=== PATIENT | male | born 1970 ===

== ENCOUNTER 2021-03-10 17:36 | Emergency (ER) | payer MEDICARE ==
[2021-03-10 19:36] LABS: Basophils # (Auto) 0.2 K/mm3 (0.0-0.1); Basophils % (Auto) 1.5 % (0.0-1.8); Eosinophils # (Auto) 0.1 K/mm3 (0.0-0.4); Eosinophils % (Auto) 0.7 % (0.0-4.3); Hematocrit 44.2 % (35.5-45.6); Hemoglobin 15.5 gm/dl (11.8-15.2); Lymphocytes # (Auto) 1.9 K/mm3 (1.2-5.4); Lymphocytes % (Auto) 18.5 % (13.4-35.0); Mean Corpuscular HGB Conc 35 % (32-34); Mean Corpuscular Volume 86 fl (84-94); Monocytes # (Auto) 0.6 K/mm3 (0.0-0.8); Monocytes % (Auto) 5.8 % (0.0-7.3); Platelet Count 279 K/mm3 (140-440); Red Blood Count 5.12 M/mm3 (3.65-5.03); Red Cell Distribution Width 12.9 % (13.2-15.2)
[2021-03-10 19:51] LABS: Blood Urea Nitrogen 10 mg/dL (9-20); Calcium 9.8 mg/dL (8.4-10.2); Hemolysis Index 11
[2021-03-10 19:54] LABS: BUN/Creatinine Ratio 14
[2021-03-10 21:15] LABS: Amphetamine Screen,Urine Negative; Benzodiazepines Screen,Urine Negative; Cannabinoid Screen,Urine Negative; Cocaine Screen,Urine Negative; Methadone Screen,Urine Negative; Opiate Screen,Urine Negative
[2021-03-10 21:18] LABS: Bilirubin,Urine NEG (Negative); Blood,Urine NEG (Negative); Color,Urine Yellow (Yellow); Protein,Urine <15 mg/dL mg/dL (Negative); Urobilinogen,Urine < 2.0 mg/dL (<2.0)
[2021-03-10] MEDS ORDERED: clonazePAM 0.5 MG TAB PO ONE (21:31)
--- NOTE | 2021-03-10 21:37 | Emergency Department Report ---
HPI - General Chief Complaint: Anxiety Time Seen by Provider: 03/10/21 20:58 - HPI HPI: This is a 50-year-old male who presents to the emergency department with complaint of anxiety, depression and suicidal ideations. The patient was at the partial hospitalization program [facility]. However, he says that most of the people there were being treated for substance abuse and he did not feel that he was getting appropriate psychiatric treatment. Therefore, after 3.5 days of treatment there he left [facility]. He asked about going to the main [facility] for psychiatric care but was told that he needed to come to the emergency department for evaluation. Patient says that he has been on many different antidepressant medications but nothing appears to be working. This is causing him to feel despair and it has gotten to the point where he feels like he would be better off . He has thought about hanging himself. He denies any hallucinations or homicidal ideations. The patient also has a medical history of [id number] diabetes and hypertension. He denies any tobacco or illicit drug use. ED Past Medical Hx - Past Medical History Previous Medical History?: Yes Hx Hypertension: Yes Hx Diabetes: Yes Hx Psychiatric Treatment: Yes Additional medical history: Anxiety and depression - Surgical History Past Surgical History?: Yes Additional Surgical History: Back - Social History Smoking Status: Never Smoker Substance Use Type: None - Medications Home Medications: Home Medications Medication Instructions Recorded Confirmed Last Taken Type Azilsartan Medoxomil [Edarbi] 80 mg PO DAILY 03/10/21 03/10/21 Unknown History PARoxetine HCl [Paxil] 40 mg PO QDAY 03/10/21 03/10/21 Unknown History Rosuvastatin (Nf) [Crestor] 5 mg PO QDAY 03/10/21 03/10/21 Unknown History amLODIPine [Norvasc] 10 mg PO DAILY 03/10/21 03/10/21 Unknown History busPIRone [Buspar] 10 mg PO TID 03/10/21 03/10/21 Unknown History clonazePAM [Klonopin] 1 mg PO BID PRN 03/10/21 03/10/21 Unknown History metFORMIN [Glucophage] 500 mg PO BID 03/10/21 03/10/21 Unknown History ED Review of Systems ROS: Stated complaint: ANXIETY AND DEPRESSION Other details as noted in HPI Comment: All other systems reviewed and negative Constitutional: denies: chills, fever Eyes: denies: eye pain, vision change ENT: denies: ear pain, throat pain Respiratory: denies: cough, shortness of breath Cardiovascular: denies: chest pain, palpitations Gastrointestinal: denies: abdominal pain, vomiting Musculoskeletal: denies: back pain, arthralgia Neurological: denies: headache, weakness Psychiatric: anxiety, depression, suicidal thoughts. denies: auditory hallucinations, visual hallucinations, homicidal thoughts Physical Exam - Physical Exam Vital Signs: Vital Signs 03/10/21 18:48 Temperature 99 F Pulse Rate 94 H Respiratory 20 Rate Blood Pressure 133/86 O2 Sat by Pulse 100 Oximetry Physical Exam: GENERAL: The patient is well-developed well-nourished. HENT: Normocephalic. Atraumatic. Patient has moist mucous membranes. EYES: Extraocular motions are intact. NECK: Supple. Trachea is midline. CHEST/LUNGS: Clear to auscultation. There is no respiratory distress noted. HEART/CARDIOVASCULAR: Regular. There is no tachycardia. There is no murmur. ABDOMEN: Abdomen is soft, nontender. Patient has normal bowel sounds. SKIN: Skin is warm and dry. NEURO: The patient is awake, alert, and oriented. The patient is cooperative. Normal speech. MUSCULOSKELETAL: There is no tenderness or deformity. There is no limitation range of motion. ED Course Vital Signs 03/10/21 18:48 Temperature 99 F Pulse Rate 94 H Respiratory 20 Rate Blood Pressure 133/86 O2 Sat by Pulse 100 Oximetry ED Medical Decision Making - Lab Data Result diagrams: 03/10/21 19:12 03/10/21 19:12 Lab Results 03/10/21 03/10/21 03/10/21 Range/Units 19:12 19:12 19:12 WBC (4.5-11.0) K/mm3 RBC (3.65-5.03) M/mm3 Hgb (11.8-15.2) gm/dl Hct (35.5-45.6) % MCV (84-94) fl MCH (28-32) pg MCHC (32-34) % RDW (13.2-15.2) % Plt Count (140-440) K/mm3 Lymph % (Auto) (13.4-35.0) % [place] % (Auto) (0.0-7.3) % Eos % (Auto) (0.0-4.3) % Baso % (Auto) (0.0-1.8) % Lymph # (Auto) (1.2-5.4) K/mm3 [place] # (Auto) (0.0-0.8) K/mm3 Eos # (Auto) (0.0-0.4) K/mm3 Baso # (Auto) (0.0-0.1) K/mm3 Seg Neutrophils % (40.0-70.0) % Seg Neutrophils # (1.8-7.7) K/mm3 Sodium 140 (137-145) mmol/L Potassium 3.7 (3.6-5.0) mmol/L Chloride 100.3 (98-107) mmol/L Carbon Dioxide 28 (22-30) mmol/L Anion Gap 15 mmol/L BUN 10 (9-20) mg/dL Creatinine 0.7 L (0.8-1.3) mg/dL Estimated GFR > 60 ml/min BUN/Creatinine Ratio 14 % Glucose 126 H (75-100) mg/dL Calcium 9.8 (8.4-10.2) mg/dL Urine Color (Yellow) Urine Turbidity (Clear) Urine pH (5.0-7.0) Ur Specific [place] (1.003-1.030) Urine Protein (Negative) mg/dL Urine Glucose (UA) (Negative) mg/dL Urine Ketones (Negative) mg/dL Urine Blood (Negative) Urine Nitrite (Negative) Urine Bilirubin (Negative) Urine Urobilinogen (<2.0) mg/dL Ur Leukocyte Esterase (Negative) Urine WBC (Auto) (0.0-6.0) /HPF Urine RBC (Auto) (0.0-6.0) /HPF Salicylates < 0.3 L (2.8-20.0) mg/dL Urine Opiates Screen Urine Methadone Screen Acetaminophen 5.0 L (10.0-30.0) ug/mL Ur Barbiturates Screen Ur Phencyclidine Scrn Ur Amphetamines Screen U Benzodiazepines Scrn Urine Cocaine Screen U Marijuana (THC) Screen Drugs of Abuse Note Plasma/Serum Alcohol (0-0.07) % 03/10/21 03/10/21 03/10/21 Range/Units 19:12 19:12 Unknown WBC 10.3 (4.5-11.0) K/mm3 RBC 5.12 H (3.65-5.03) M/mm3 Hgb 15.5 H (11.8-15.2) gm/dl Hct 44.2 (35.5-45.6) % MCV 86 (84-94) fl MCH 30 (28-32) pg MCHC 35 H (32-34) % RDW 12.9 L (13.2-15.2) % Plt Count 279 (140-440) K/mm3 Lymph % (Auto) 18.5 (13.4-35.0) % [place] % (Auto) 5.8 (0.0-7.3) % Eos % (Auto) 0.7 (0.0-4.3) % Baso % (Auto) 1.5 (0.0-1.8) % Lymph # (Auto) 1.9 (1.2-5.4) K/mm3 [place] # (Auto) 0.6 (0.0-0.8) K/mm3 Eos # (Auto) 0.1 (0.0-0.4) K/mm3 Baso # (Auto) 0.2 H (0.0-0.1) K/mm3 Seg Neutrophils % 73.5 H (40.0-70.0) % Seg Neutrophils # 7.6 (1.8-7.7) K/mm3 Sodium (137-145) mmol/L Potassium (3.6-5.0) mmol/L Chloride (98-107) mmol/L Carbon Dioxide (22-30) mmol/L Anion Gap mmol/L BUN (9-20) mg/dL Creatinine (0.8-1.3) mg/dL Estimated GFR ml/min BUN/Creatinine Ratio % Glucose (75-100) mg/dL Calcium (8.4-10.2) mg/dL Urine Color Yellow (Yellow) Urine Turbidity Clear (Clear) Urine pH 6.0 (5.0-7.0) Ur Specific [place] 1.010 (1.003-1.030) Urine Protein <15 mg/dl (Negative) mg/dL Urine Glucose (UA) Neg (Negative) mg/dL Urine Ketones Neg (Negative) mg/dL Urine Blood Neg (Negative) Urine Nitrite Neg (Negative) Urine Bilirubin Neg (Negative) Urine Urobilinogen < 2.0 (<2.0) mg/dL Ur Leukocyte Esterase Neg (Negative) Urine WBC (Auto) 3.0 (0.0-6.0) /HPF Urine RBC (Auto) 4.0 (0.0-6.0) /HPF Salicylates (2.8-20.0) mg/dL Urine Opiates Screen Urine Methadone Screen Acetaminophen (10.0-30.0) ug/mL Ur Barbiturates Screen Ur Phencyclidine Scrn Ur Amphetamines Screen U Benzodiazepines Scrn Urine Cocaine Screen U Marijuana (THC) Screen Drugs of Abuse Note Plasma/Serum Alcohol < 0.01 (0-0.07) % 03/10/21 Range/Units Unknown WBC (4.5-11.0) K/mm3 RBC (3.65-5.03) M/mm3 Hgb (11.8-15.2) gm/dl Hct (35.5-45.6) % MCV (84-94) fl MCH (28-32) pg MCHC (32-34) % RDW (13.2-15.2) % Plt Count (140-440) K/mm3 Lymph % (Auto) (13.4-35.0) % [place] % (Auto) (0.0-7.3) % Eos % (Auto) (0.0-4.3) % Baso % (Auto) (0.0-1.8) % Lymph # (Auto) (1.2-5.4) K/mm3 [place] # (Auto) (0.0-0.8) K/mm3 Eos # (Auto) (0.0-0.4) K/mm3 Baso # (Auto) (0.0-0.1) K/mm3 Seg Neutrophils % (40.0-70.0) % Seg Neutrophils # (1.8-7.7) K/mm3 Sodium (137-145) mmol/L Potassium (3.6-5.0) mmol/L Chloride (98-107) mmol/L Carbon Dioxide (22-30) mmol/L Anion Gap mmol/L BUN (9-20) mg/dL Creatinine (0.8-1.3) mg/dL Estimated GFR ml/min BUN/Creatinine Ratio % Glucose (75-100) mg/dL Calcium (8.4-10.2) mg/dL Urine Color (Yellow) Urine Turbidity (Clear) Urine pH (5.0-7.0) Ur Specific [place] (1.003-1.030) Urine Protein (Negative) mg/dL Urine Glucose (UA) (Negative) mg/dL Urine Ketones (Negative) mg/dL Urine Blood (Negative) Urine Nitrite (Negative) Urine Bilirubin (Negative) Urine Urobilinogen (<2.0) mg/dL Ur Leukocyte Esterase (Negative) Urine WBC (Auto) (0.0-6.0) /HPF Urine RBC (Auto) (0.0-6.0) /HPF Salicylates (2.8-20.0) mg/dL Urine Opiates Screen Negative Urine Methadone Screen Negative Acetaminophen (10.0-30.0) ug/mL Ur Barbiturates Screen Negative Ur Phencyclidine Scrn Negative Ur Amphetamines Screen Negative U Benzodiazepines Scrn Negative Urine Cocaine Screen Negative U Marijuana (THC) Screen Negative Drugs of Abuse Note Disclamer Plasma/Serum Alcohol (0-0.07) % - Medical Decision Making This patient presents with anxiety, depression and suicidal ideations. The patient has been made a 1013 and an ED hold secondary to the suicidal ideations. He was recently at the [facility] hospitalization program but appears to have been accepted now to [facility] for inpatient stabilization. Labs have been unremarkable including CBC, metabolic panel, blood alcohol level, urinalysis and UDS. Vital signs reassuring throughout his ED course including being afebrile. Critical Care Time: No Critical care attestation.: If time is entered above; I have spent that time in minutes in the direct care of this critically ill patient, excluding procedure time. ED Disposition Clinical Impression: Suicidal ideations, Anxiety Depression Qualifiers: Depression Type: major depressive disorder Major depression recurrence: unspecified whether recurrent Major depression episode severity: unspecified Disposition: DC/TX-65 PSY HOSP/PSY UNIT Is pt being admited?: No Condition: Stable Time of Disposition: 22:35
[2021-03-11] MEDS: metFORMIN 500 MG TAB PO SCH ×3 (08:00→21:35)
[2021-03-11] MEDS: amLODIPine 5 MG TAB PO SCH (10:04)
[2021-03-11] MEDS ORDERED: NON-FORMULARY EACH (Clonazepam [Klonopin] 1 MG Tablet) PO PRN (10:38)
--- NOTE | 2021-03-11 10:41 | Event Note ---
Date: 03/11/21 50-year-old male who presented the night of 03/10/2021 complaining of worsening anxiety/depression as well as suicidal ideations. Labs were drawn and the patient was seen by my colleague and has been medically cleared for psychiatric recommendations and placement. There were no acute events overnight. Vital signs are stable. I have reconciled and restarted the patient's home medications. He is currently awaiting psychiatric placement
[2021-03-11] MEDS ORDERED: AZILSARTAN MEDOXOMIL 80 MG PO SCH (10:45)
[2021-03-11] MEDS ORDERED: NON-FORMULARY EACH (Rosuvastatin (Nf) 5 MG Tablet) PO SCH (10:45)
[2021-03-11] MEDS ORDERED: NON-FORMULARY EACH (Paroxetine Hcl [Paxil] 30 MG Tablet) PO SCH (10:45)
[2021-03-11] MEDS ORDERED: PARoxetine 20 MG TAB PO SCH (11:00)
--- NOTE | 2021-03-11 11:20 | Consultation ---
History of Present Illness - Reason for Consult Consult date: 03/11/21 Reason for consult: SI - History of Present Psychiatric Illness Per ED Note: 50-year-old male who presented the night of 03/10/2021 complaining of worsening anxiety/depression as well as suicidal ideations. Labs were drawn and the patient was seen by my colleague and has been medically cleared for psychiatric recommendations and placement. There were no acute events overnight. Vital signs are stable. I have reconciled and restarted the patient's home medications. He is currently awaiting psychiatric placement. Bin Christianson was seen today. He is a 50y/o male who states that he has severe anxiety and depression, that has been getting worse. The patient also verbalizes suicidal thoughts without a plan. He says he was recently at [place] and was given meds but they are not working. He denies any illicit drug use, alcohol or nicotine. He also denies any hallucinations. PAST PSYCHIATRIC HISTORY Diagnoses: Depression and anxiety Suicide attempts or Self-harm behavior: Denies Prior psychiatric hospitalizations: Yes Substance Abuse history: denies Previous psychiatric medications tried: paxil, klonopin, buspar Outpatient treatment: Denies SOCIAL HISTORY Marital Status: Living Arrangements: With spuse Employment Status: Disabled Access to guns/weapons: Denies Education: high school History of Abuse: Denies Legal History: None reported REVIEW OF SYSTEMS Constitutional: Negative for weight loss ENT: Negative for stridor Respiratory: Negative for cough or hemoptysis All other systems reviewed and are negative MENTAL STATUS EXAMINATION General Appearance and Behavior: Age appropriate, dressed appropriately, calm and cooperative Cooperation: Participating Psychomotor Behavior: psychomotor normal Mood: Depressed Affect and affective range: Congruent with stated mood Thought Process: goal directed Thought Content: None Speech: Normal volume, Regular rate and rhythm, Intellectual Functioning: Average Suicidal Ideation: Yes Homicidal Ideation: Denies Hallucinations: Denies Delusions: None elicited Impulse Control: Impaired Insight and Judgment: Limited insight and judgment, Memory: Limited Attention: Undivided Orientation: Alert, oriented Assessment and Plan (1) Major Depressive Disorder (2) Generalized Anxiety Disorder Treatment Plan 1013 Agree with other home meds D/C Paxil Start Effexor 25mg po daily Risks, benefits and alternatives of medications discussed with the patient, questions answered and consent obtained from patient. PSYCHOTHERAPY: Supportive psychotherapy provided MEDICAL: Per primary team DELIRIUM PRECAUTIONS: Please re-orient patient frequently, keep lights on during the day, and minimize benzodiazepines and opiates as these medications could w orsen patient's confusion. 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 Thank you for the consult. Please contact with any questions and/or concerns. Case staffed with Dr. Singh Medications and Allergies Allergies Allergy/AdvReac Type Severity Reaction Status Date / Time aspirin Allergy Unknown Verified 03/11/21 08:39 diphenhydramine Allergy Itching Verified 03/11/21 08:39 [From Benadryl] latex Allergy Itching Verified 03/11/21 08:39 tramadol Allergy Itching Verified 03/11/21 08:39 Home Medications Medication Instructions Recorded Confirmed Last Taken Type Azilsartan Medoxomil [Edarbi] 80 mg PO DAILY 03/10/21 03/10/21 Unknown History PARoxetine HCl [Paxil] 40 mg PO QDAY 03/10/21 03/10/21 Unknown History Rosuvastatin (Nf) [Crestor] 5 mg PO QDAY 03/10/21 03/10/21 Unknown History amLODIPine [Norvasc] 10 mg PO DAILY 03/10/21 03/10/21 Unknown History busPIRone [Buspar] 10 mg PO TID 03/10/21 03/10/21 Unknown History clonazePAM [Klonopin] 1 mg PO BID PRN 03/10/21 03/10/21 Unknown History metFORMIN [Glucophage] 500 mg PO BID 03/10/21 03/10/21 Unknown History Active Meds: Active Medications Amlodipine Besylate (Amlodipine 5 Mg Tab) 10 mg PO QDAY [facility] Last Admin: 03/11/21 10:04 Dose: 10 mg Documented by: Atorvastatin Calcium (Atorvastatin 10 Mg Tab) 10 mg PO QDAY [facility] Buspirone HCl (Buspirone 10 Mg Tab) 10 mg PO TID [facility] Losartan Potassium (Losartan 50 Mg Tab) 50 mg PO QDAY [facility] Metformin HCl (Metformin 500 Mg Tab) 500 mg PO BID [facility] Last Admin: 03/11/21 10:04 Dose: Not Given Documented by: Miscellaneous Medication (Clonazepam [Klonopin]) 1 mg PO BID PRN PRN Reason: Anxiety Paroxetine HCl (Paroxetine 20 Mg Tab) 40 mg PO DAILY [facility] Mental Status Exam - Vital signs Last Vital Signs Temp 98 F 03/11/21 08:36 Pulse 87 03/11/21 08:36 Resp 20 03/11/21 08:36 BP 130/89 03/11/21 08:36 Pulse Ox 100 03/11/21 08:36 Results Result Diagrams: 03/10/21 19:12 03/10/21 19:12 Abnormal lab results 03/10/21 03/10/21 03/10/21 Range/Units 19:12 19:12 19:12 RBC (3.65-5.03) M/mm3 Hgb (11.8-15.2) gm/dl MCHC (32-34) % RDW (13.2-15.2) % Baso # (Auto) (0.0-0.1) K/mm3 Seg Neutrophils % (40.0-70.0) % Creatinine 0.7 L (0.8-1.3) mg/dL Glucose 126 H (75-100) mg/dL Salicylates < 0.3 L (2.8-20.0) mg/dL Acetaminophen 5.0 L (10.0-30.0) ug/mL 03/10/21 Range/Units 19:12 RBC 5.12 H (3.65-5.03) M/mm3 Hgb 15.5 H (11.8-15.2) gm/dl MCHC 35 H (32-34) % RDW 12.9 L (13.2-15.2) % Baso # (Auto) 0.2 H (0.0-0.1) K/mm3 Seg Neutrophils % 73.5 H (40.0-70.0) % Creatinine (0.8-1.3) mg/dL Glucose (75-100) mg/dL Salicylates (2.8-20.0) mg/dL Acetaminophen (10.0-30.0) ug/mL All other labs normal.
[2021-03-11] MEDS: LOSARTAN 50 MG TAB PO SCH (12:30)
[2021-03-11] MEDS: VENLAFAXINE 25 MG TAB PO SCH (12:48)
[2021-03-11] MEDS: busPIRone 10 MG TAB PO SCH ×2 (14:00→21:35)
[2021-03-11] MEDS: clonazePAM 0.5 MG TAB PO PRN (18:05)
[2021-03-12] MEDS: clonazePAM 0.5 MG TAB PO PRN (08:09)
[2021-03-12] MEDS: busPIRone 10 MG TAB PO SCH (08:09)
--- NOTE | 2021-03-12 08:42 | Progress Note ---
Subjective - Reason for Consult Consult date: 03/12/21 Reason for consult: Depression/Anxiety - Chief Complaint Chief complaint: The patient was seen today. He was asking why was he still here. He says "yesterday, you let everybody go home except me." Reminded the patient that he endorsed suicidal thoughts yesterday. The patient states "yes, my anxiety at times makes me feel this way. But I am no longer suicidal. That was yesterday." He then starts asking why wasn't he getting his klonopin and how "being in the ER is no good for his anxiety." He tells me that he did not get his klonopin twice a day and he was told by the nurse that I had stopped it. The patient states "my is at home alone, I would be better there with her." The patient says "I have a psychiatrist already that I see." The patient comes to the nursing li while I am talking to the nurse. I have the nurse check and see if the klonopin was discontinued. It's still an active order. The nurse says the patient was given his klonopin last night but did not ask for it today. The patient then asks, "ma'am when am I leaving.? When am I going home?" REVIEW OF SYSTEMS Constitutional: Negative for weight loss ENT: Negative for stridor Respiratory: Negative for cough or hemoptysis All other systems reviewed and are negative MENTAL STATUS EXAMINATION General Appearance and Behavior: Age appropriate, dressed appropriately, anxious and cooperative Cooperation: Participating Psychomotor Behavior: psychomotor normal Mood: anxious Affect and affective range: Congruent with stated mood Thought Process: goal directed Thought Content: None Speech: Normal volume, Regular rate and rhythm, Intellectual Functioning: Average Suicidal Ideation: Denies Homicidal Ideation: Denies Hallucinations: Denies Delusions: None elicited Impulse Control: Impaired Insight and Judgment: Limited insight and judgment, Memory: Limited Attention: Undivided Orientation: Alert, oriented Assessment and Plan (1) Major Depressive Disorder (2) Generalized Anxiety Disorder Treatment Plan d/c 1013 Continue previously prescribed meds discontinue paxil Effexor 25mg po daily Risks, benefits and alternatives of medications discussed with the patient, questions answered and consent obtained from patient. PSYCHOTHERAPY: Supportive psychotherapy provided MEDICAL: Per primary team DELIRIUM PRECAUTIONS: Please re-orient patient frequently, keep lights on during the day, and minimize benzodiazepines and opiates as these medications could worsen patient's confusion. 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 The patient understands that if suicidal thoughts are to reoccur he is to seek immediate assistance including but not limited to 911/ER or the crisis hotline. The assessors to further discuss and document safety plan, and give resources for outpatient The patient to follow up in 7 to 14 days upon discharge Will sign off. Thank you for the consult. Please contact with any questions and/or concerns. Case staffed with Dr. Singh Mental Status Exam - Vital signs Last Vital Signs Temp 98.2 F 03/11/21 19:40 Pulse 101 H 03/11/21 19:40 Resp 18 03/11/21 19:40 BP 131/82 03/11/21 19:40 Pulse Ox 97 03/11/21 19:40
[2021-03-12 08:58] VITALS: BP 122/85
[2021-03-12] MEDS: LOSARTAN 50 MG TAB PO SCH (10:30)
[2021-03-12] MEDS: metFORMIN 500 MG TAB PO SCH (10:30)
[2021-03-12] MEDS: VENLAFAXINE 25 MG TAB PO SCH (10:30)
[2021-03-12] MEDS: amLODIPine 5 MG TAB PO SCH (10:30)
== END 2021-03-12 13:02 | disposition home or self-care (01) ==
LOC: ED 17:36
DX: R45.851 Suicidal ideations (principal); Z20.822 Contact with and (suspected) exposure to COVID-19; F32.9 Major depressive disorder, single episode, unspecified; F41.9 Anxiety disorder, unspecified; I10 Essential (primary) hypertension; E11.9 Type 2 diabetes mellitus without complications; Z98.890 Other specified postprocedural states; Z79.84 Long term (current) use of oral hypoglycemic drugs; Z79.899 Other long term (current) drug therapy; Z88.8 Allergy status to other drugs, medicaments and biological substances
CPT/HCPCS: 36415; 80048; 80307; 81001; 85025; 99284; A9270; U0003; 80320; G0480; J3246